=== PATIENT | female | born 1995 | race Asian ===

== ENCOUNTER 2022-08-03 20:06 | Emergency (ER) | payer OTHER ==
[~2022-08-03] VITALS: Ht 157.5 cm; Wt 49.0 kg
[~2022-08-03 20:06] MED LIST: INTESTINEX1 CAP PO; ZANTAC150 M3 PO; ZOFRAN ODT4 MG/UDTAB PO
== END 2022-08-03 22:31 | disposition home or self-care (01) ==
LOC: ER 20:06
DX: U07.1 COVID-19 (principal); M94.0 Chondrocostal junction syndrome [Tietze]; J45.909 Unspecified asthma, uncomplicated